=== PATIENT | male | born 1995 | race Caucasian/White ===

== ENCOUNTER 2023-03-27 20:14 | Emergency (ER) | payer OTHER ==
[~2023-03-27] VITALS: Wt 90.9 kg
[2023-03-27 21:13] LABS: BASO # 0.02 K/mm3 (0.02-0.10); EOS # 0.28 K/mm3 (0.04-0.40); EOS % 3.7 % (0.0-4.0); HEMATOCRIT 41.7 % (42.0-52.0); HEMOGLOBIN 14.5 g/dL (13.5-18.0); LYMPH# 2.66 K/mm3 (1.50-4.00); MEAN CELL VOLUME 87 fl (78-100); MEAN CORPUSCULAR HEMOGLOBIN 30 pg (27-31); MEAN CORPUSCULAR HGB CONC 35 g/dL (33-37); MEAN PLATELET VOLUME 8.8 fl (7.4-10.4); MONO # 0.53 K/mm3 (0.20-0.80); NEU # 4.09 K/mm3 (1.40-6.50); PLATELET COUNT 145 K/mm3 (130-400); RED BLOOD COUNT 4.78 M/mm3 (4.20-5.60); RED CELL DISTRIBUTION WIDTH 11.7 % (11.5-14.5); WHITE BLOOD COUNT 7.6 K/mm3 (4.8-10.8)
[2023-03-27 21:21] LABS: ALBUMIN 4.2 g/dL (3.5-5.0); SODIUM 138 mmol/L (136-145)
[2023-03-27 21:22] LABS: CALCIUM 8.7 mg/dL (8.3-10.5)
[2023-03-27 21:23] LABS: TOTAL PROTEIN 6.9 g/dL (6.4-8.3)
[2023-03-27 21:24] LABS: CARBON DIOXIDE 21 mmol/L (22-29); GLUCOSE 186 mg/dL (75-110)
[2023-03-27 21:25] LABS: TOTAL BILIRUBIN 0.9 mg/dL (0.2-1.2)
[2023-03-27 21:29] LABS: AST-SGOT 13 U/L (5-34)
[2023-03-27 21:30] LABS: URINE APPEARANCE CLEAR; URINE BILIRUBIN NEGATIVE (NEGATIVE); URINE BLOOD TRACE (NEGATIVE); URINE COLOR YELLOW; URINE GLUCOSE NEGATIVE (NEGATIVE); URINE KETONE NEGATIVE (NEGATIVE); URINE LEUKOCYTE ESTERASE NEGATIVE (NEGATIVE); URINE NITRATE NEGATIVE (NEGATIVE); URINE PROTEIN(semi-quant) TRACE (NEGATIVE); URINE UROBILINOGEN NORMAL (NORMAL)
[2023-03-27 21:30] LABS: ALT/SGPT 16 U/L (0-55)
[2023-03-27 21:31] LABS: URINE WBC 0-1 /hpf (0-3)
[2023-03-27 21:32] LABS: URINE MUCUS PRESENT (NOT PRESENT)
[2023-03-27] MEDS ORDERED: ESCITALOPRAM10 MG PO (21:46)
[2023-03-27 21:57] VITALS: BP 127/87
== END 2023-03-27 21:57 | disposition home or self-care (01) ==
LOC: ED 20:14
PROVIDERS: Physician Assistant
DX: N50.812 Left testicular pain (principal); R10.32 Left lower quadrant pain; Z28.310 Unvaccinated for COVID-19
CPT/HCPCS: J3010